=== PATIENT | male | born 1955 | race Caucasian/White ===

== ENCOUNTER → 2024-02-15 12:41 | Outpatient (REF) | payer MEDICARE, OTHER, SELFPAY | LOC: MRI 3T 12:41 | PROVIDERS: ATTENDING PHYSICIAN Physician Assistant; FAMILY PHYSICIAN Registered Nurse | DX: M25.511 Pain in right shoulder (principal) | CPT/HCPCS: 72141; 73221 ==

== ENCOUNTER 2024-11-17 06:13 | Day surgery (SDC) | payer MEDICARE, OTHER, SELFPAY | END 2024-11-17 10:58 | disposition home or self-care (01) | LOC: GI 06:13 | PROVIDERS: ATTENDING PHYSICIAN Surgery | DX: Z12.11 Encounter for screening for malignant neoplasm of colon (principal); K64.8 Other hemorrhoids; D12.0 Benign neoplasm of cecum | CPT/HCPCS: 45385; 46221; 88305 ==

== ENCOUNTER → 2025-05-18 14:13 | Outpatient (REF) | payer MEDICARE, OTHER, SELFPAY | LOC: HWRAD 14:13 | PROVIDERS: ATTENDING PHYSICIAN Nurse Practitioner Family; FAMILY PHYSICIAN Registered Nurse | DX: N20.0 Calculus of kidney (principal) | CPT/HCPCS: 76770 ==